=== PATIENT | male | born 2000 | race Caucasian/White ===

== ENCOUNTER 2019-10-31 12:29 | Emergency (ER) | payer BC ==
[2019-10-31 12:35] VITALS: BP 136/70; PULSE 87; RESP 16; TEMP 97.4
[2019-10-31] MEDS ORDERED: LORazepam 1 MG TAB PO STA (12:49)
--- NOTE | 2019-10-31 12:52 | ED ---
General Adult HPI - General Chief complaint: Neuro Symptoms/Deficit Stated complaint: body tingling/shaky Time Seen by Provider: 10/31/19 12:30 Source: patient, RN notes reviewed, old records reviewed Mode of arrival: ambulatory Limitations: no limitations - History of Present Illness Initial comments: This is a 19-year-old male who presents emergency department with past medical history significant for one previous panic attack. Patient states today he was drinking coffee and then he started to feel like he had to breathe fast he couldn't slow down. Patient states he continued to breathe quite fast and then his hands became tingly in difficult to control and then he started having tingling in his face and that he became lightheaded. At the time he decided to come the emergency department. Patient states he feels considerably better now but still a little anxious. Patient denies any fever chills or cough per patient denies being short of breath. Patient denies any chest pain or palpitations. Patient denies any abdominal pain patient denies nausea vomiting diarrhea. - Related Data Allergies Allergy/AdvReac Type Severity Reaction Status Date / Time No Known Allergies Allergy Verified 10/31/19 12:30 Review of Systems ROS Statement: Those systems with pertinent positive or pertinent negative responses have been documented in the HPI. ROS Other: All systems not noted in ROS Statement are negative. Past Medical History Past Medical History: No Reported History History of Any Multi-Drug Resistant Organisms: None Reported Past Surgical History: No Surgical Hx Reported Past Psychological History: No Psychological Hx Reported Smoking Status: Never smoker Past Alcohol Use History: None Reported Past Drug Use History: None Reported General Exam - General Exam Comments Initial Comments: GENERAL: Patient is well-developed and well-nourished. Patient is nontoxic and well- hydrated and is in mild distress. ENT: Neck is soft and supple. No significant lymphadenopathy is noted. Oropharynx is clear. Moist mucous membranes. Neck has full range of motion without eliciting any pain. EYES: The sclera were anicteric and conjunctiva were pink and moist. Extraocular movements were intact and pupils were equal round and reactive to light. Eyelids were unremarkable. PULMONARY: Unlabored respirations. Good breath sounds bilaterally. CARDIOVASCULAR: There is a regular rate and rhythm without any murmurs gallops or rubs. ABDOMEN: Soft and nontender with normal bowel sounds. SKIN: Skin is clear with no lesions or rashes and otherwise unremarkable. NEUROLOGIC: Patient is alert and oriented x3. Cranial nerves II through XII are grossly intact. Motor and sensory are also intact. Normal speech, volume and content. Symmetrical smile. MUSCULOSKELETAL: Normal extremities with adequate strength and full range of motion. LYMPHATICS: No significant lymphadenopathy is noted PSYCHIATRIC: Patient appears to be mildly anxious Limitations: no limitations Course Vital Signs 10/31/19 12:30 Temperature 97.4 F L Pulse Rate 87 Respiratory 16 Rate Blood Pressure 136/70 O2 Sat by Pulse 97 Oximetry Medical Decision Making - Medical Decision Making EKG shows normal sinus rhythm at 65 bpm IA interval is 1:30 QRS is 86 QT interval 396 QTC is 411. Patient's EKG shows no ST segment elevation or depression. Chest x-ray shows no acute abnormality. I will begin to reevaluate the patient he was calm down considerably. Patient was in agreement they thought it was probably a panic attack. Disposition Clinical Impression: Panic attack, Hyperventilation Disposition: HOME SELF-CARE Condition: Good Instructions (If sedation given, give patient instructions): Hyperventilation ( ED), Panic Attack (ED) Is patient prescribed a controlled substance at d/c from ED?: No Referrals: Christopher Sandhu MD [Primary Care Provider] - 1-2 days Time of Disposition: 13:06
--- NOTE | 2019-10-31 13:16 | XR ---
EXAMINATION TYPE: XR chest 2V DATE OF EXAM: 10/31/2019 COMPARISON: NONE HISTORY: Chest pain TECHNIQUE: Frontal and lateral views of the chest are obtained. FINDINGS: There is no focal air space opacity. No evidence for pneumothorax. No pleural effusion. The cardiac silhouette size is within normal limits. The osseous structures are grossly intact. IMPRESSION: 1. No acute cardiopulmonary process.
== END 2019-10-31 13:20 | disposition home or self-care (01) ==
LOC: EC 12:29
DX: F41.0 Panic disorder [episodic paroxysmal anxiety] (principal); R06.4 Hyperventilation
CPT/HCPCS: 71046; 93005; 99284

== ENCOUNTER → 2022-12-03 | Outpatient (CLI) | payer OTHER ==
--- NOTE | 2022-12-03 12:24 | NM ---
EXAMINATION TYPE: MI gastric emptying static DATE OF EXAM: 12/03/2022 COMPARISON: NONE HISTORY: Pain, abdominal distention Following administration of 1.67 mCi Tc 99m Sulfur Colloid with 4 OUNCES OF EGGS, 2 PIECES OF TOAST W ITH BUTTER & JAM, 8 OUNCES OF WATER, projection images of the abdomen were obtained 10 minutes post i ngestion. Patient Emptying Values 1 Hour 37 % 2 Hours 77 % 3 Hours 100 % 4 Hours 100 % Gastroesophagel reflux: None IMPRESSION: 1. Normal gastric emptying study. Gastric emptying normal percentage values: 30 minutes: <70% of retention (> 30% emptying) suggests abnormally fast emptying. 60 minutes: <90% retention (>10% emptying) is normal; less than 30% retention (>70% emptying) suggest s abnormally rapid empying. 90 minutes: <65% retention (> 35% emptying) is normal. 120 minutes: <60% retention (> 40% emptying) is normal. 180 minutes: <30% retention (> 70% emptying) is normal. Gastric emptying T-1/2: Solid: The normal range is 60-105 minutes Liquid only: Normal range is 10-45 minutes. Liquid only-children: At 60 minutes, normal range is 44-58 % . Liquid only-infants: At 60 minutes, normal range is 32-64 %. Additional references: Gastric Emptying Scintigraphy [email or web address]://[email or web address]
[2022-12-03 17:39] LABS: Gliadin AB IgA, Deaminated POSITIVE (NEGATIVE); Gliadin AB IgA, Unit 141.2 U/mL; Gliadin AB IgG, Deaminated POSITIVE (NEGATIVE); Gliadin AB IgG, Unit 36.8 U/mL
== END | disposition home or self-care (01) ==
LOC: RADNMMAIN 06:53
PROVIDERS: ATTEND Internal Medicine Gastroenterology
DX: R14.0 Abdominal distension (gaseous) (principal)
CPT/HCPCS: 83516 ×4; 78264; A9541

== ENCOUNTER → 2022-12-19 | Day surgery (SDC) | payer OTHER ==
[2022-12-17 09:27] VITALS: BMI 29.0
[~2022-12-19] MED LIST: LACTATED RINGERS 1,000 ML IV SCH; LIDOCAINE 2% INJ 20 MG/ML (2 ML VIAL) ONE; MIDAZOLAM 2 MG/2 ML VIAL ONE; PROPOFOL 10 MG/ML 20 ML VIAL IV ONE; fentaNYL (PF) 50 MCG/ML 2 ML AMP ONE
[2022-12-19 13:26] VITALS: TEMP 69
--- NOTE | 2022-12-19 14:30 | P.PCN ---
Date of Procedure: 12/19/22 Procedure(s) Performed: BRIEF HISTORY: Patient is a 22-year-old, pleasant, scheduled for an upper endoscopy as a part of evaluation of positive of serology for celiac disease. He is been having abdominal bloating with excessive gas epigastric fullness for the last 3-4 years duration. Recent workup revealed positive serology for celiac disease with elevated tissue transaminase antibody.. PROCEDURE PERFORMED: Esophagogastroduodenoscopy with multiple biopsies. PREOPERATIVE DIAGNOSIS: Abdominal bloating/epigastric fullness/positive serology for celiac disease. IV sedation per anesthesia. PROCEDURE: After informed consent was obtained, the patient was brought into the endoscopy unit. IV sedation was administered by Anesthesia under continuous monitoring. Initially the Olympus GIF-140 video endoscope was inserted into the mouth. Esophagus intubated without any difficulty. It was gradually advanced into the stomach and duodenum and carefully examined. The bulb and the second part of the duodenum mild duodenitis and positive the duodenal folds with patchy areas of atrophic-appearing mucosa suspicious for the celiac disease and multiple biopsies were done from this area. The scope at this time was withdrawn to the stomach, adequately insufflated with air, and upon careful examination, mucosa of the antrum, had mild gastritis and biopsies were done from this area. Mucosa body, cardia and the fundus appeared normal. The scope was then withdrawn into the esophagus. The GE junction was located at 39 cm from the incisors. The esophagus appeared normal. There were no erosions or ulcerations seen and the patient tolerated the procedure well. IMPRESSION: 1. Duodenitis with mild positive the duodenal folds with atrophic-appearing mucosa suspicious for celiac disease status post multiple biopsies. 2. Mild antral gastritis. RECOMMENDATIONS: The findings of this examination were discussed with the patient as well as his family. He was advised to follow with the biopsy results and he'll be seen in office in one week..
[2022-12-19 15:04] VITALS: RESP 16
[2022-12-19 15:30] VITALS: BP 138/62; PULSE 67
== END ==
LOC: ORWHC2ENDO 12:52
PROVIDERS: ATTEND Internal Medicine Gastroenterology
DX: K29.50 Unspecified chronic gastritis without bleeding (principal); K29.80 Duodenitis without bleeding; K21.9 Gastro-esophageal reflux disease without esophagitis; K90.0 Celiac disease; Z79.899 Other long term (current) drug therapy
CPT/HCPCS: 88305; 43239; J2250; J3010; J2704; J2001